=== PATIENT | female | born 1945 | race Caucasian/White ===

== ENCOUNTER 2022-06-19 09:17 | Outpatient (REF) | payer MEDICARE, OTHER, SELFPAY ==
[2022-06-19 10:56] LABS: Carbamazepine Tegretol 5.5 mcg/mL (5.0-12.0)
== END 2022-06-19 09:18 | disposition home or self-care (01) ==
LOC: HO.LAB 09:17
PROVIDERS: PCP Internal Medicine; Visit Provider Psychiatry & Neurology Neurology
DX: M54.81 Occipital neuralgia (principal); Z79.899 Other long term (current) drug therapy
CPT/HCPCS: 36415; 80156